=== PATIENT | male | born 1960 | race Caucasian/White ===

== ENCOUNTER 2024-04-24 05:57 | Day surgery (SDC) | payer BC, MEDICARE ==
[2024-04-24] MEDS ORDERED: PROPOFOL 10 MG/ML 20 ML VIAL IV ONE (07:26)
[2024-04-24] MEDS ORDERED: SODIUM CHLORIDE 0.9% 1,000 ML BAG ONE (07:26)
[2024-04-24] MEDS ORDERED: LIDOCAINE 1% INJ 10MG/ML (20 ML MDV) ONE (07:26)
--- NOTE | 2024-05-16 11:49 | PCN ---
PROCEDURE NOTE PROCEDURE: Cardioversion. INDICATION: Atrial flutter. After obtaining informed consent, the patient underwent cardioversion with 120 joules of synchronized DC current. He converted to sinus rhythm following a single shock. A DANAY ruled out intracardiac thrombus. The patient is adequately anticoagulated with Eliquis. He will be followed up in my office in a week's time. HEATH / IJN: [id number] /
--- NOTE | 2024-05-29 14:52 | ECHOT ---
TRANSESOPHAGEAL ECHOCARDIOGRAM INDICATION: Atrial flutter. PROCEDURE NOTE: After obtaining informed consent, transesophageal echocardiogram was performed in left lateral position using an Omniplane probe. Local and IV sedation were obtained by the director clinical operations. The patient tolerated the procedure well without any obvious immediate complications. FINDINGS: 1. There is no intracardiac thrombus within the left atrial appendage, left atrium, right atrium, right ventricle, or left ventricle. 2. Left atrium appears enlarged. 3. Mitral valve is anatomically normal. There is mild to moderate central mitral regurgitation noted. 4. There is mild tricuspid regurgitation. 5. Aortic valve is a 3-leaflet valve. There is no evidence of aortic stenosis or regurgitation. 6. Aortic root measures within normal limits. 7. Interatrial septum, there is no evidence of vlaf-ca-ydypb shunt by color-flow Doppler or vxunc-ze-luyn shunt by agitated saline contrast study. 8. Left ventricle has normal size and systolic function. CONCLUSIONS: 1. No intracardiac thrombus. 2. Mild to moderate mitral regurgitation. 3. Normal LV function. 4. Left atrial enlargement. PLAN: The patient will undergo cardioversion. MMODL / IJN: [id number] /
== END 2024-04-24 09:26 ==
LOC: OR 05:57
PROVIDERS: ATTEND Internal Medicine Cardiovascular Disease
DX: I48.92 Unspecified atrial flutter
CPT/HCPCS: 92960